=== PATIENT | female | born 1940 | race African-American/Black ===

== ENCOUNTER 2016-08-06 22:54 | Emergency (ER) | payer MEDICARE, OTHER ==
[~2016-08-06] VITALS: Ht 160 cm; Wt 117.9 kg
[2016-08-06 23:15] VITALS: BP 131/81
[2016-08-06] MEDS: Ipratropium 0.02% Inh Soln 2.5ml UD HHN SCH (23:43)
[2016-08-06] MEDS: Albuterol ud Inhalation HHN SCH (23:43)
[2016-08-06] MEDS ORDERED: Solu-MEDROL 125mg Inj IVP ONE (23:45)
[2016-08-07] MEDS: Ipratropium 0.02% Inh Soln 2.5ml UD HHN SCH ×2 (00:11→00:56)
[2016-08-07] MEDS: Albuterol ud Inhalation HHN SCH ×2 (00:11→00:56)
[2016-08-07 00:19] LABS: BASOPHILS % (AUTO) 0.7 % (0.0-2.0); LYMPHOCYTES % (AUTO) 8.9 % (20.0-45.0); MEAN CORPUSCULAR HGB CONC 32.5 G/DL (32.0-36.0); MEAN CORPUSCULAR VOLUME 86 FL (80-99); MEAN PLATELET VOLUME 6.3 FL (6.5-10.1); NEUTROPHILS % (AUTO) 82.3 % (45.0-75.0); PLATELET COUNT 305 K/UL (150-450); RED BLOOD COUNT 4.99 M/UL (4.20-5.40); RED CELL DISTRIBUTION WIDTH 14.4 % (11.6-14.8); WHITE BLOOD COUNT 8.9 K/UL (4.8-10.8)
[2016-08-07 00:35] LABS: ALANINE AMINOTRANSFERASE 22 U/L (3-33); ANION GAP 18 (5-15); ASPARTATE AMINO TRANSFERASE 43 U/L (5-40); CALCIUM 9.5 mg/dL (8.6-10.2); CARBON DIOXIDE 29 mEQ/L (20-30); CHLORIDE 90 mEQ/L (98-107); HEMOLYSIS 2; SODIUM 137 mEQ/L (135-145); TOTAL PROTEIN 8.2 g/dL (6.6-8.7)
[2016-08-07 00:38] LABS: REFLEX LACTIC ACID YES OR NO YES
[2016-08-07 00:43] LABS: TROPONIN I < 0.30 ng/mL (<=0.30)
[2016-08-07 00:46] LABS: CKMB 16.6 ng/mL (< 3.8)
[2016-08-07 01:04] VITALS: BP 138/78
[2016-08-07 03:10] VITALS: BP 160/68
[2016-08-07 04:00] VITALS: BP 161/69
[2016-08-07 04:20] VITALS: BP 161/69
--- NOTE | 2016-08-07 04:39 | Emergency Room Report ---
History of Present Illness General Chief Complaint: Dyspnea/Respdistress Source: Patient Present Illness HPI 75-year-old female presents to ED complaining of shortness of breath. States the symptoms started tonight. Patient states she was just discharged from [facility] last night. Patient was admitted for a few days for a asthma exacerbation. Patient was discharged home on oxygen and was supposed to be discharged with a nebulizer but never received nebulizer. Patient started to have wheezing symptoms and call 911. Was given reading given by EMS. States that she is feeling somewhat better but wheezing is persisting. Denies any cough. Denies any fevers or chills. Denies chest pain. No other aggravating relieving factors. Denies any other associated symptoms Allergies: Coded Allergies: ASPIRIN (Verified Allergy, Unknown, 08/06/16) CODEINE (Verified Allergy, Unknown, 08/06/16) HYDROCHLOROTHIAZIDE (Verified Allergy, Unknown, 08/06/16) MILK (Verified Allergy, Unknown, 08/06/16) Patient History Past Medical History: HTN Pertinent Family History: none Social History: Denies: alcohol use, drug use, smoking Last Menstrual Period: n/a Now: No Immunizations: UTD Reviewed Nursing Documentation: PMH: Agreed, PSxH: Agreed Nursing Documentation-PMH Past Medical History: No History, Except For Hx Hypertension: Yes Hx Diabetes: Yes - arthritis Review of Systems All Other Systems: negative except mentioned in HPI Physical Exam Vital Signs Date Time Temp Pulse Resp B/P Pulse Ox O2 Delivery O2 Flow Rate FiO2 08/06/16 23:04 98.1 87 22 137/75 95 Nasal Cannula 08/06/16 23:15 10.0 Sp02 EP Interpretation: reviewed, normal General Appearance: no apparent distress, alert, GCS 15, non-toxic, obese Head: normocephalic, atraumatic Eyes: bilateral eye PERRL, bilateral eye normal inspection ENT: hearing grossly normal, normal pharynx, no angioedema, normal voice Neck: full range of motion, supple/symm/no masses Respiratory: chest non-tender, speaking full sentences, wheezing Cardiovascular #1: regular rate, rhythm, no edema Cardiovascular #2: 2+ carotid (R), 2+ carotid (L), 2+ radial (R), 2+ radial (L) , 2+ dorsalis pedis (R), 2+ dorsalis pedis (L) Gastrointestinal: normal bowel sounds, non tender, soft, non-distended, no guarding, no rebound Rectal: deferred Genitourinary: normal inspection, no CVA tenderness Musculoskeletal: back normal, gait/station normal, normal range of motion, non- tender Neurologic: alert, oriented x3, responsive, motor strength/tone normal, sensory intact, speech normal Psychiatric: judgement/insight normal, memory normal, mood/affect normal, no suicidal/homicidal ideation Reflexes: 3+ bicep (R), 3+ bicep (L), 3+ tricep (R), 3+ tricep (L), 3+ knee (R) , 3+ knee (L) Skin: normal color, no rash, warm/dry, well hydrated Lymphatic: no adenopathy Medical Decision Making Diagnostic Impression: Primary Impression: Asthma exacerbation ER Course Hospital Course 75-year-old F presenting to ED with SOB. Differential diagnoses include: Pneumonia, CHF exacerbation, pneumothorax, fluid overload Clinical course Patient placed on stretcher. On lunchroom monitor with stable vitals. After initial history and physical, I ordered nebulizer treatments. I ordered labs, IV fluids, EKG, chest x-ray, blood cultures, UA. Labs - no leukocytosis noted, hemoglobin/hematocrit stable, electrolytes okay, lactate 2.8, troponins negative CXR - cardiomegaly. ? atelectasis, w/ effusion abx given. Because of insurance patient will be transferred to [place] I feel this is a highly complex case requiring extensive working including EKG/ Rhythm strip, Xray/CT/US, Blood/urine lab work, repeat exams while in ED, and administration of strong opiates/narcotics for pain control, admission to hospital or close patient follow up. Diagnosis -asthma exacerbation Transferred in serious condition Labs Test 08/06/16 23:59 08/07/16 04:00 White Blood Count 8.9 K/UL (4.8-10.8) Red Blood Count 4.99 M/UL (4.20-5.40) Hemoglobin 14.0 G/DL (12.0-16.0) Hematocrit 43.0 % (37.0-47.0) Mean Corpuscular Volume 86 FL (80-99) Mean Corpuscular Hemoglobin 28.0 PG (27.0-31.0) Mean Corpuscular Hemoglobin Concent 32.5 G/DL (32.0-36.0) Red Cell Distribution Width 14.4 % (11.6-14.8) Platelet Count 305 K/UL (150-450) Mean Platelet Volume 6.3 FL (6.5-10.1) Neutrophils (%) (Auto) 82.3 % (45.0-75.0) Lymphocytes (%) (Auto) 8.9 % (20.0-45.0) Monocytes (%) (Auto) 8.0 % (1.0-10.0) Eosinophils (%) (Auto) 0.0 % (0.0-3.0) Basophils (%) (Auto) 0.7 % (0.0-2.0) Sodium Level 137 mEQ/L (135-145) Potassium Level 4.0 mEQ/L (3.4-4.9) Chloride Level 90 mEQ/L (98-107) Carbon Dioxide Level 29 mEQ/L (20-30) Anion Gap 18 (5-15) Blood Urea Nitrogen 25 mg/dL (7-23) Creatinine 1.0 mg/dL (0.5-0.9) Estimat Glomerular Filtration Rate mL/min (>60) Glucose Level 266 mg/dL (74-106) Lactic Acid Level 2.80 mmol/L (0.66-2.22) Calcium Level 9.5 mg/dL (8.6-10.2) Total Bilirubin 0.4 mg/dL (0.0-1.2) Aspartate Amino Transf (AST/SGOT) 43 U/L (5-40) Alanine Aminotransferase (ALT/SGPT) 22 U/L (3-33) Alkaline Phosphatase 133 U/L (35-104) Total Creatine Kinase 553 U/L (26-140) Creatine Kinase MB 16.6 ng/mL (< 3.8) Creatine Kinase MB Relative Index 3.0 Troponin I < 0.30 ng/mL (<=0.30) Pro-B-Type Natriuretic Peptide 258 pg/mL (0-450) Total Protein 8.2 g/dL (6.6-8.7) Albumin 4.2 g/dL (3.5-5.2) Globulin 4.0 g/dL Albumin/Globulin Ratio 1.0 (1.0-2.7) EKG Diagnostic Results Rate: normal Rhythm: other - 1st degree av block ST Segments: no acute changes ASA given to the pt in ED: No Rhythm Strip Diag. Results EP Interpretation: yes Rhythm: NSR, no PVC's, no ectopy Chest X-Ray Diagnostic Results EP Interpretation: Yes Findings: no pneumothorax, no acute cardiopulmonary disease, other - cardiomegaly. effusion noted Number of Views: 1 Last Vital Signs Date Time Temp Pulse Resp B/P Pulse Ox O2 Delivery O2 Flow Rate FiO2 08/07/16 04:20 98.2 98 20 161/69 100 Nasal Cannula 2.0 Status: improved Disposition: XFER T-[facility] Condition: Serious Referrals: [facility] (PCP) LORNE HODGES M.D. August 07, 2016 04:39
--- NOTE | 2016-08-07 12:12 | Diagnostic Imaging Report ---
Indication: SOB Technique: One view of the chest Comparison: none Findings: The heart size is upper limits of normal. Aorta is tortuous and calcified. The lungs and pleural spaces are clear. Impression: No acute process
--- NOTE | 2016-08-07 18:34 | Cardiology Report ---
APPROVED REPORT EKG Measurement Heart [id number] Sinus rhythm with 1st degree AV block Otherwise normal ECG
== END 2016-08-07 04:20 | disposition short-term general hospital (02) ==
LOC: EDBD 22:54 → EMR 23:13
DX: J45.901 Unspecified asthma with (acute) exacerbation (principal); I10 Essential (primary) hypertension; E11.9 Type 2 diabetes mellitus without complications; Z88.6 Allergy status to analgesic agent; Z91.011 Allergy to milk products; Z88.8 Allergy status to other drugs, medicaments and biological substances
CPT/HCPCS: 36415; 71010; 80053; 82550; 82553; 83605; 83880; 84484; 85025; 87040; 93005; 94640; 94664; 96360; 96361; 96374; 99285; J1956; J2930; J7040